=== PATIENT | male | born 1950 | race Caucasian/White ===

== ENCOUNTER 2024-08-18 17:57 | Emergency (ER) | payer OTHER ==
[~2024-08-18] VITALS: Ht 177.8 cm; Wt 90.7 kg
[2024-08-18] MEDS: LIDOCAINE 1% INJ 50 ML MDV IJ ONE (19:30)
[2024-08-18] MEDS ORDERED: CEPHALEXIN MONOHYDRATE 500 MG CAPSULE PO ONE (21:28)
[2024-08-18] MEDS: CEPHALEXIN MONOHYDRATE 500 MG CAPSULE PO ONE (21:30)
[2024-08-18] MEDS ORDERED: CEPH500T PO (21:33)
[2024-08-18 21:45] VITALS: BP 140/72; TEMP 98.5; O2SAT 97
== END 2024-08-18 21:46 | disposition home or self-care (01) ==
LOC: ER 18:03
DX: S61.210A Laceration without foreign body of right index finger without damage to nail, initial encounter (principal); E78.5 Hyperlipidemia, unspecified; Z88.2 Allergy status to sulfonamides; W29.1XXA Contact with electric knife, initial encounter; Y93.89 Activity, other specified; Y92.89 Other specified places as the place of occurrence of the external cause; Y99.8 Other external cause status
CPT/HCPCS: 73130-TC